=== PATIENT | female | born 1960 | race Caucasian/White ===

== ENCOUNTER 2017-02-17 14:17 | Emergency (ER) | payer OTHER, MEDICARE ==
[~2017-02-17] VITALS: Ht 170.2 cm; Wt 79.4 kg
[~2017-02-17 14:17] MED LIST: AMLODIPINE BESY10 M1 PO; ASPIRIN EC325 M2 PO; ASPIRIN81 M4 PO; CLONAZEPAM0.5 M2 PO; COLACE100 M1 PO; DIGOXIN250 MCG PO; DILAUDID2 M1 PO; DILTIAZEM 24HR120 MG PO; ESCITALOPRAM OX20 MG PO; FLUTICASONE PRO16 GM NASB; LOSARTAN-HCTZ1 EACH PO; MIRALAX17 G1 PO; MS CONTIN30 M1 PO; NEXIUM40 M1 PO; OXYCODONE HCL5 M1 PO
--- NOTE | 2017-02-17 14:54 | ED GI/GU/ABDOMINAL COMPLAINT ---
History of Present Illness General Chief Complaint: Abdominal Pain/Flank Pain Stated Complaint: ?KIDNEY STONES Source: patient Exam Limitations: no limitations Vital Signs & Intake/Output Vital Signs & Intake/Output Vital Signs Date Time Temp Pulse Resp B/P B/P Pulse O2 O2 Flow FiO2 Mean Ox Delivery Rate 02/17 1651 97.4 58 18 180/79 98 Room Air 02/17 1546 Room Air 02/17 1515 196/80 02/17 1438 98.0 66 20 62/33 97 Room Air Allergies Coded Allergies: Penicillins (Severe, ANAPHYLAXIS 05/02/16) diphenhydramine (From BENADRYL) (Severe, GETS FREAKY INSIDE 02/17/17) codeine (Intermediate, ITCHING 02/17/17) lansoprazole (RASH 02/17/17) Triage Note: PT TO ED C/O LEFT FLANK PAIN X 2 DAYS. STATES ? KIDNEY STONES, NO HISTORY OF SAME. DENIES S/S. C/O NAUSEA, NO VOMITING. Triage Nurses Notes Reviewed? yes ? N Is pt currently ? No Onset: Gradual Duration: getting worse Timing: recent history Quality/Severity: severe, stabbing, throbbing Severity Numbers: 10 Location: left flank Radiation: back Activities at Onset: none HPI: Patient is a 56-year-old female with a past medical history of hypertension, anxiety and depression who presents emergency room with a 2 day history of gradual onset of left back and flank pain where today symptoms have significantly worsened for patient currently is complaining of a ripping burning sharp stabbing severe pain from her back radiating to her left flank. Patient states that movements coughing and lumbar spine activities make worse. Denies any lower extremity radiating pain paresthesia or weakness. Denies any fevers chills shortness breath cough or hemoptysis chest pain and arm pain jaw pain nausea or vomiting Denies any vaginal bleeding or discharge (REINA SCHRADER) Reconcile Medications Aspirin (Ecotrin*) 325 MG TABLET.DR 1 TAB PO BID ANTICOAGULATION Clonazepam 0.5 MG TABLET 1 TAB PO BID ANXIETY (Reported) Diazepam (Valium) 5 MG TABLET 1 TAB PO BIDP PRN MUSCLE SPASM Diltiazem HCl (Diltiazem 24HR ER) 120 MG CAP.ER.24H 120 MG PO QPM BP ( Reported) Escitalopram Oxalate 20 MG TABLET 1 TAB PO DAILY MENTAL HEALTH (Reported) Esomeprazole (Nexium) 40 MG CAPSULE. 1 CAP PO DAILY GI (Reported) Hydromorphone HCl (Dilaudid) 2 MG TABLET 1 TAB PO BIDP PRN PAIN Losartan/Hydrochlorothiazide (Losartan-Hctz 100-12.5 MG Tab) 1 EACH TABLET 1 TAB PO DAILY HEART (Reported) (ADAM WALKER,KATHLEEN) Past History Travel History Traveled to [place] past 21 day No Medical History Any Pertinent Medical History? see below for history Neurological: migraine EENT: sinusitis Cardiovascular: hypertension Respiratory: SLEEP APNEA, NO CPAP Gastrointestinal: GERD Hepatic: NONE Renal: NONE Musculoskeletal: chronic back pain, osteoarthritis Psychiatric: anxiety, depression Endocrine: NONE Blood Disorders: NONE Cancer(s): NONE [employer]/Reproductive: NONE History of MRSA: No History of VRE: No History of CDIFF: No Influenza Vaccine: 07/25/16 Surgical History Surgical History: hip replacement, lumbar fusion Psychosocial History Who do you live with Daughter What is your primary language [place] Tobacco Use: Current Daily Use Daily Tobacco Use Amount/Type: => 5 Cigarettes daily ETOH Use: occasional use Illicit Drug Use: denies illicit drug use Family History Hx Contributory? No (REINA SCHRADER) Review of Systems Review of Systems Constitutional: Reports: no symptoms. EENTM: Reports: no symptoms. Respiratory: Reports: no symptoms. Cardiovascular: Reports: no symptoms. GI: Reports: see HPI, abdominal pain. Genitourinary: Reports: no symptoms. Musculoskeletal: Reports: see HPI, back pain. Skin: Reports: no symptoms. Neurological/Psychological: Reports: no symptoms. Hematologic/Endocrine: Reports: no symptoms. Immunologic/Allergic: Reports: no symptoms. All Other Systems: Reviewed and Negative (REINA SCHRADER) Physical Exam Physical Exam General Appearance: alert, severe distress Gastrointestinal: normal bowel sounds, soft Comments: HEENT: Normal EENT exam. Neck: Supple, no lymphadenopathy, normal range of motion without pain or tenderness Back: Normal inspection, decreased active range of motion noted superficial left lateral muscular severe point tenderness noted Cardiovascular: Regular rate and rhythms no murmurs rubs or gallops, normal JVP Respiratory: Chest nontender. No respiratory distress.breath sounds clear to auscultation bilaterally Abdomen: Soft, mild left flank point tenderness nondistended, no appreciable organomegaly. Normal bowel sounds. No ascites Extremity: No edema, no calf tenderness to palpation, normal and equal pulses. Bilateral lower extremity dermatomes myotomes DTRs intact Neuro: Alert oriented x3, motor sensory normal, Skin: No appreciable rash on exposed skin, skin is warm and dry. Psych: Mood and affect is normal, memory and judgment is normal. Core Measures ACS in differential dx? No Severe Sepsis Present: No Septic Shock Present: No (DENIZ WAITE,REINA) Progress Differential Diagnosis: AAA, AMI, appendicitis, biliary colic, bowel obstruction , colon cancer, cholecystitis, diverticulitis, ectopic , endometritis, esophageal varices, gastritis, hepatitis, hernia, hemorrhoids, ischemic bowel, inflamm bowel dis, intrauterine , kidney stone, ovarian cyst, ovarian torsion, pancreatitis, PID/cervicitis, peptic ulcer, PUD/GERD, perforated viscous, SBO, threatened AB, UTI/pyelo Plan of Care: Orders Procedure Date/time Status LACTIC ACID 02/17 UNK Complete LACTIC ACID 02/17 1752 Active TROPONIN LEVEL 02/17 145 Complete PARTIAL THROMBOPLASTIN TIME 02/17 1452 Complete PROTHROMBIN TIME 02/17 1452 Complete COMPREHENSIVE METABOLIC PANEL 02/17 1452 Complete CBC WITHOUT DIFFERENTIAL 02/17 1452 Complete EKG 02/17 1452 Active TYPE & SCREEN (NOT X-MATCH) 02/17 145 Complete Current Medications Sig/Tashi Start time Last Medication Dose Stop Time Status Admin Morphine Sulfate 4 MG ONCE ONE 02/17 1515 CAN (Morphine) 02/17 1516 Laboratory Tests 02/17/17 1605: Lactic Acid 2.0 02/17/17 1526: PT 11.7, INR 1.12, APTT 32 02/17/17 1515: Anion Gap 12, Estimated GFR > 60, BUN/Creatinine Ratio 13.3, Glucose 87, Calcium 9.5, Total Bilirubin 0.7, AST 56 H, ALT 62 H, Alkaline Phosphatase 77, Troponin I < 0.01, Total Protein 6.8, Albumin 4.1, Globulin 2.7, Albumin/ Globulin Ratio 1.5 02/17/17 1452: Urine Color Cancelled, Urine Clarity Cancelled, Urine pH Cancelled, Ur Specific [place] Cancelled, Urine Protein Cancelled, Urine Ketones Cancelled, Urine Nitrite Cancelled, Urine Bilirubin Cancelled, Urine Urobilinogen Cancelled, Ur Leukocyte Esterase Cancelled, Ur Microscopic Cancelled, Urine Hemoglobin Cancelled, Urine Glucose Cancelled 02/17/17 1450: CBC w Diff NO MAN DIFF REQ, RBC 4.66, MCV 91.8, MCH 31.3 H, RDW 13.5, MPV 8.3, Gran % 52.4, Lymphocytes % 39.3, Monocytes % 5.7, Eosinophils % 2.1, Basophils % 0.5, Absolute Granulocytes 3.4, Absolute Lymphocytes 2.6, Absolute Monocytes 0.4 , Absolute Eosinophils 0.1, Absolute Basophils 0, PUBS MCHC 34.1 There was noted to me the patient was in significant pain and nursing staff did note to me the patient's blood pressure was noted to be approximately 60/30 where patient presentation was concerning for dissection. However after a repeat blood pressure was obtained patient was noted to HAVE ELEVATED HYPERTENSION and no concerns of hypotension AND/OR AAA/DISSECTION WAS noted at this time. CT angiogram scan was resulted showing no acute process of chest abdomen Patient also had unremarkable blood work. Patient initially had moderate resolution of pain with Dilaudid however after Valium was administered she had complete resolution of pain. Patient has reproducible pain upon lumbar spine movements and ambulation which at this time I suspicion of musculoskeletal or muscle spasms is of high suspicion. Patient had normal steady gait on discharge Patient's lower extremity was neurovascularly intact. Upon discharge patient looks well no apparent distress and will comply with discharge instructions and had no questions. (DENIZ WAITE,REINA) Diagnostic Imaging: Viewed by Me: CT Scan. Radiology Impression: no acute abnormality, no fracture Initial ED EK BPM, NSR 1ST DEGREE AV BLOCK Comments: PATIENT: LUCITA SANTANA PRESENT AGE: 56 PATIENT ACCOUNT NO: [id number] : 58 LOCATION: [facility] ORDERING PHYSICIAN: REINA WAITE SERVICE DATE: 02/17/17 EXAM TYPE: CAT - CT ABD ANGIOGRAM; CTA CHEST-AORTIC DISSECTION EXAMINATION: CT ANGIOGRAM CHEST, ABDOMEN AND PELVIS CLINICAL INFORMATION: Severe abdominal pain, rule out dissection. COMPARISON: None TECHNIQUE: Multiple axial images were obtained through the abdomen following the administration of 93 mL of Optiray 320 intravenous contrast. Images were reviewed on a dedicated 3-D workstation. DLP: 931.77 mGy-cm FINDINGS: VASCULAR FINDINGS: The thoracic aorta appears normal without evidence of dissection or aneurysm. A normal 3-vessel arch is seen and the great vessels are widely patent. The abdominal aorta appears normal without evidence of aneurysm or dissection. The visualized iliofemoral vessels appear normal. The celiac, SMA and CECILIO are all widely patent. There are 2 renal arteries on the left and a single renal artery on the right that are widely patent. Incidental note made of a retroaortic left renal vein. The IVC is of normal caliber but not opacified. The portal venous system cannot be commented upon due to phase of contrast. NONVASCULAR FINDINGS: The lungs are clear without infiltrates, effusions or lung masses. Small AP window nodes are noted, the largest of which is 6 mm in greatest transverse dimension. A single precarinal lymph node is present that measures 1.42 x 1.37 cm. Examination of the abdomen shows a normal-appearing liver, gallbladder and bile ducts aside from the presence of a few small low attenuation masses in the liver, the largest of which is 1 cm which measures water density. These are all consistent with cysts. The spleen is unremarkable. Both adrenal glands are normal. Both kidneys appear normal. Some tiny cysts are noted on the left. The pancreas is unremarkable. No retroperitoneal adenopathy is seen. The visualized bowel appears normal. There are bilateral hip replacements present which produce marked artifact obscuring detail in the pelvis. Small axillary nodes are present but no adenopathy. There is a prosthetic disc at L5-S1. No bony destructive lesions are seen. IMPRESSION: 1. No evidence of aortic dissection or aneurysm. 2. No cause for the patient's severe abdominal pain has been found. DICTATED BY: ASHLEE MANZANARES MD DATE/TIME DICTATED:02/17/171511 HEALTH OCCUPATIONS INSTRUCTOR:AARON DATE/TIME TRANSCRIBED:02/17/171511 CONFIDENTIAL, DO NOT COPY WITHOUT APPROPRIATE AUTHORIZATION. (REINA SCHRADER) Departure Departure Disposition: HOME OR SELF CARE Condition: Stable Clinical Impression Primary Impression: Back spasm Secondary Impressions: Left flank pain Referrals: BIA NAIR MD (PCP/Family) Additional Instructions: As discussed begin Icing the area directly 20 minutes every 2 hours. Begin over -the-counter ibuprofen for pain and inflammation and begin the prescription of Dilaudid for breakthrough pain relief and Valium for muscle relaxer. If no better in 2 days follow-up with your primary care doctor. If symptoms worsen return to emergency room. Activity as tolerated try not to bedrest as this may worsen your symptoms Prescription is waiting at [facility] pharmacy Departure Forms: Customer Survey General Discharge Information Prescriptions: Current Visit Scripts Hydromorphone HCl (Dilaudid) 1 TAB PO BIDP PRN PAIN #10 TAB Diazepam (Valium) 1 TAB PO BIDP PRN MUSCLE SPASM #10 TAB (REINA SCHRADER) PA/BARREL COOPER Co-Sign Statement Statement: ED Attending supervision documentation- [X] I saw and evaluated the patient. I have also reviewed all the pertinent lab results and diagnostic results. I agree with the findings and the plan of care as documented in the PA's/BARREL COOPER's documentation. [X] I have reviewed the ED Record and agree with the PA's/BARREL COOPER's documentation. [] Additions or exceptions (if any) to the PAs/BARREL COOPER's note and plan are summarized below: [] (ADAM WALKER,KATHLEEN)
[2017-02-17 15:19] LABS: ABSOLUTE BASOPHIL COUNT 0 /CUMM (0.0-0.2); ABSOLUTE EOSINOPHIL COUNT 0.1 /CUMM (0.0-0.7); ABSOLUTE GRANULOCYTE CT 3.4 /CUMM (1.4-6.5); ABSOLUTE LYMPH COUNT 2.6 /CUMM (1.2-3.4); ABSOLUTE MONOCYTE COUNT 0.4 /CUMM (0.10-0.60); BASOPHIL % 0.5 % (0.0-2.0); EOSINOPHIL % 2.1 % (0-5); GRANULOCYTE % 52.4 % (42.2-75.2); HEMATOCRIT 42.8 % (37-47); MEAN CORPUSCULAR HGB 31.3 PG (27.0-31.0); MEAN CORPUSCULAR HGB CONC 34.1 G/DL (33.0-37.0); MEAN CORPUSCULAR VOLUME 91.8 FL (81.0-99.0); MEAN PLATELET VOLUME 8.3 FL (7.4-10.4); PLATELET COUNT 196 /CUMM (130-400); RBC DISTRIBUTION WIDTH 13.5 % (11.5-14.5); RED BLOOD CELL CT 4.66 /CUMM (4.20-5.40); WHITE BLOOD CELL COUNT 6.5 /CUMM (4.8-10.8)
--- NOTE | 2017-02-17 15:47 | CT SCAN REPORT ---
EXAMINATION: CT ANGIOGRAM CHEST, ABDOMEN AND PELVIS CLINICAL INFORMATION: Severe abdominal pain, rule out dissection. COMPARISON: None TECHNIQUE: Multiple axial images were obtained through the abdomen following the administration of 93 mL of Optiray 320 intravenous contrast. Images were reviewed on a dedicated 3-D workstation. DLP: 931.77 mGy-cm FINDINGS: VASCULAR FINDINGS: The thoracic aorta appears normal without evidence of dissection or aneurysm. A normal 3-vessel arch is seen and the great vessels are widely patent. The abdominal aorta appears normal without evidence of aneurysm or dissection. The visualized iliofemoral vessels appear normal. The celiac, SMA and CECILIO are all widely patent. There are 2 renal arteries on the left and a single renal artery on the right that are widely patent. Incidental note made of a retroaortic left renal vein. The IVC is of normal caliber but not opacified. The portal venous system cannot be commented upon due to phase of contrast. NONVASCULAR FINDINGS: The lungs are clear without infiltrates, effusions or lung masses. Small AP window nodes are noted, the largest of which is 6 mm in greatest transverse dimension. A single precarinal lymph node is present that measures 1.42 x 1.37 cm. Examination of the abdomen shows a normal-appearing liver, gallbladder and bile ducts aside from the presence of a few small low attenuation masses in the liver, the largest of which is 1 cm which measures water density. These are all consistent with cysts. The spleen is unremarkable. Both adrenal glands are normal. Both kidneys appear normal. Some tiny cysts are noted on the left. The pancreas is unremarkable. No retroperitoneal adenopathy is seen. The visualized bowel appears normal. There are bilateral hip replacements present which produce marked artifact obscuring detail in the pelvis. Small axillary nodes are present but no adenopathy. There is a prosthetic disc at L5-S1. No bony destructive lesions are seen. IMPRESSION: 1. No evidence of aortic dissection or aneurysm. 2. No cause for the patient's severe abdominal pain has been found.
[2017-02-17 16:51] VITALS: BP 180/79
[2017-02-17 16:53] LABS: PT 11.7 SEC (9.4-12.5); PTT 32 SEC (25-37)
[2017-02-17] MEDS ORDERED: DILAUDID2 M1 PO (17:25)
[2017-02-17] MEDS ORDERED: VALIUM5 M2 PO (17:25)
== END 2017-02-17 17:33 ==
LOC: ERH 14:17
PROVIDERS: Physician Assistant
DX: M62.830 Muscle spasm of back (principal); R10.9 Unspecified abdominal pain; I10 Essential (primary) hypertension; Z72.0 Tobacco use
CPT/HCPCS: 74175; 93005; 93010; 96361; 96374; 96375; J3360; Q9965